=== PATIENT | female | born 2000 | race Caucasian/White ===

== ENCOUNTER 2023-12-19 06:00 | Inpatient (IN) | payer OTHER ==
[2023-12-19] MEDS ORDERED: METHYLERGONOVINE 0.2 MG/ML 1 ML AMP IM PRN (06:50)
[2023-12-19] MEDS ORDERED: miSOPROStoL 200 MCG TAB PO PRN (06:50)
[2023-12-19] MEDS ORDERED: TRANEXAMIC 1,000 MG/100ML-NACL 1,000 MG in EMPTY BAG 1 BAG IV PRN (06:50)
[2023-12-19] MEDS ORDERED: TERBUTALINE 1 MG/ML VIAL SQ PRN (06:50)
[2023-12-19] MEDS ORDERED: OXYTOCIN 10 UNIT/ML 1 ML VIAL IM PRN (06:50)
[2023-12-19] MEDS ORDERED: miSOPROStoL 200 MCG TAB RECTAL PRN (06:50)
[2023-12-19] MEDS ORDERED: CARBOPROST TROMETHAMINE 250 MCG/ML 1 ML AMP IM PRN (06:50)
[2023-12-19] MEDS: LACTATED RINGERS 1,000 ML IV SCH (07:22)
[2023-12-19] MEDS: OXYTOCIN 30 UNITS/500 ML NS 30 UNIT in SALINE 1 500ML.BAG IV SCH ×2 (07:24→12:02)
[2023-12-19 07:43] LABS: Basophils % (A) 0 %; Eosinophils % (A) 0 %; HCT 29.8 % (34.0-46.0); HGB 9.6 gm/dL (11.4-16.0); Hypochromasia Moderate; Lymphocytes # (A) 2.9 k/uL (1.0-4.8); Lymphocytes % (A) 30 %; MCH 24.8 pg (25.0-35.0); MCHC 32.1 g/dL (31.0-37.0); MCV 77.4 fL (80.0-100.0); Mean Platelet Volume 9.3; Monocytes # (A) 0.6 k/uL (0-1.0); Monocytes % (A) 6 %; Neutrophils # (A) 5.8 k/uL (1.3-7.7); Neutrophils % (A) 61 %; Platelet Count 224 k/uL (150-450); RBC 3.85 m/uL (3.80-5.40); RDW 14.1 % (11.5-15.5); WBC 9.5 k/uL (3.8-10.6)
[2023-12-19] MEDS: LIDOCAINE 0.5% (PF) 5 MG/ML (50 ML SDV) SQ PRN (11:25)
[2023-12-19] MEDS ORDERED: diphenhydrAMINE 50 MG/ML 1 ML VIAL IVP PRN ×2 (11:37)
[2023-12-19] MEDS ORDERED: SIMETHICONE 80 MG CHEWABLE PO PRN (11:37)
[2023-12-19] MEDS ORDERED: ZOLPIDEM 5 MG TAB PO PRN (11:37)
[2023-12-19] MEDS ORDERED: LANOLIN CREAM 1 GM TUBE TOPICAL PRN (11:37)
[2023-12-19] MEDS ORDERED: diphenhydrAMINE 25 MG CAP PO PRN (11:37)
[2023-12-19] MEDS ORDERED: HYDROCORTISONE 2.5% RECTAL CREAM 30 GM TUBE RECTAL PRN (11:37)
[2023-12-19] MEDS ORDERED: diphenhydrAMINE 50 MG CAP PO PRN (11:37)
[2023-12-19] MEDS: BENZOCAINE/MENTHOL SPRAY 1 GM/SPRAY AEROSOL TOPICAL PRN (11:40)
[2023-12-19] MEDS: IBUPROFEN 800 MG TAB PO SCH (12:04)
[2023-12-19] MEDS: ACETAMINOPHEN TAB 500 MG TAB PO SCH (20:11)
[2023-12-19] MEDS: SENNOSIDES-DOCUSATE SODIUM 1 EACH TAB PO SCH (21:57)
[2023-12-20 08:05] LABS: Basophils % (A) 0 %; Eosinophils % (A) 0 %; HCT 24.2 % (34.0-46.0); Hypochromasia Slight; Lymphocytes # (A) 3.5 k/uL (1.0-4.8); Lymphocytes % (A) 26 %; MCH 25.4 pg (25.0-35.0); MCHC 33.1 g/dL (31.0-37.0); MCV 76.6 fL (80.0-100.0); Mean Platelet Volume 9.8; Monocytes # (A) 0.6 k/uL (0-1.0); Monocytes % (A) 5 %; Neutrophils # (A) 8.9 k/uL (1.3-7.7); Neutrophils % (A) 67 %; Platelet Count 198 k/uL (150-450); Poikilocytosis Slight; RBC 3.15 m/uL (3.80-5.40); RDW 14.4 % (11.5-15.5); WBC 13.3 k/uL (3.8-10.6)
--- NOTE | 2023-12-20 11:56 | P.HPOB ---
History of Present Illness H&P Date: 12/19/23 Chief Complaint: induction of labor 23-year-old G 2 P0 presented at 37 weeks and 5 days for induction of labor with monochorionic dichorionic twins gestation. Her cervix is 5 cm dilated, 80% effaced, and -1 station. She is antonio irregularly. heart tones are both category 1. Review of Systems All systems: negative Constitutional: Denies chills, Denies fever Eyes: denies blurred vision, denies pain Ears, nose, mouth and throat: Denies headache, Denies sore throat Cardiovascular: Denies chest pain, Denies shortness of breath Respiratory: Denies cough Gastrointestinal: Denies abdominal pain, Denies diarrhea, Denies nausea, Denies vomiting Genitourinary: Denies dysuria, Denies hematuria Musculoskeletal: Denies myalgias Integumentary: Denies pruritus, Denies rash Neurological: Denies numbness, Denies weakness Psychiatric: Denies anxiety, Denies depression Endocrine: Denies fatigue, Denies weight change Past Medical History Past Medical History: No Reported History History of Any Multi-Drug Resistant Organisms: None Reported Additional Past Surgical History / Comment(s): left wrist surgery 2021 Past Anesthesia/Blood Transfusion Reactions: No Reported Reaction Past Psychological History: No Psychological Hx Reported Smoking Status: Never smoker Past Alcohol Use History: None Reported Past Drug Use History: None Reported - Past Family History Mother Family Medical History: No Reported History Father Family Medical History: No Reported History Medications and Allergies Home Medications Medication Instructions Recorded Confirmed Type Doxylamine Succinate [Unisom] 25 mg PO DAILY 12/19/23 12/19/23 History Vit No.179/Iron/Folic 1 each PO DAILY 12/19/23 12/19/23 History [ Tablet] Allergies Allergy/AdvReac Type Severity Reaction Status Date / Time No Known Allergies Allergy Verified 12/19/23 06:49 Exam Osteopathic Statement: *. No significant issues noted on an osteopathic structural exam other than those noted in the History and Physical/Consult. Vital Signs Temp Pulse Resp BP Pulse Ox 12/20/23 10:27 98.2 F 82 16 110/56 12/20/23 00:00 98 F 77 16 107/73 99 12/19/23 20:00 93 16 104/71 99 12/19/23 16:00 98.3 F 98 18 101/65 98 12/19/23 13:35 74 16 114/70 12/19/23 13:20 94 16 111/72 12/19/23 13:05 88 16 104/59 12/19/23 12:50 81 18 122/47 12/19/23 12:35 75 18 118/79 100 12/19/23 12:20 71 16 112/73 100 12/19/23 12:05 89 16 112/73 100 Intake and Output 12/19/23 12/20/23 12/20/23 22:59 06:59 14:59 Intake Total 540 Balance 540 Intake: Oral 540 Other: # Voids 1 2 1 Heart: Regular rate and rhythm Lungs: Clear to auscultation bilaterally Abdomen: Soft, nontender Extremities: Negative Homans sign Results Result Diagrams: 12/20/23 07:15 Abnormal Lab Results - Last 24 Hours (Table) 12/20/23 Range/Units 07:15 WBC 13.3 H (3.8-10.6) k/uL RBC 3.15 L (3.80-5.40) m/uL Hgb 8.0 L D (11.4-16.0) gm/dL Hct 24.2 L (34.0-46.0) % MCV 76.6 L (80.0-100.0) fL Neutrophils # 8.9 H (1.3-7.7) k/uL Assessment and Plan (1) Monochorionic diamniotic twin gestation Current Visit: Yes Status: Acute Code(s): O30.039 - TWIN , MONOCHORIONIC/DIAMNIOTIC, UNSP TRIMESTER SNOMED Code(s): 63496425 (2) Encounter for induction of labor Current Visit: Yes Status: Acute Code(s): Z34.90 - ENCNTR FOR SUPRVSN OF NORMAL , UNSP, UNSP TRIMESTER SNOMED Code(s): 988205182 Plan: 1. Induction of labor with amniotomy and Pitocin 2. Anticipate normal vaginal delivery
--- NOTE | 2023-12-20 11:59 | P.PROBDLV ---
Vaginal Delivery Note - . Vaginal Delivery Note: 23-year-old G 2 P0 presented at 37 weeks and 5 days for induction of labor with monochorionic dichorionic twins gestation. Her cervix is 5 cm dilated, 80% effaced, and -1 station. She is antonio irregularly. heart tones are both category 1. Amniotomy was performed at 8:25 AM clear fluid noted. Pitocin augmentation was started. She labored well and was quickly complete at 10:50 AM. She pushed, and delivered a viable female over intact perineum at 11:11 AM. Head delivered OA, anterior shoulder delivered gentle downward guidance by posterior shoulder and rest of body. Nose and mouth bulb suctioned, infant handed to cut, infant placed mother's abdomen. Apgars 9, 9, weight 4 lbs. 12 oz. Amniotomy performed on baby B at 11:12 AM and clear fluid noted. The head was noted to be coming down well and the heart tones remained category 1. She pushed, delivered a viable female infant over intact perineum at 11:17 AM. Head delivered OA, anterior shoulder delivered gentle downward guidance followed by posterior shoulder and rest of body. Nose and mouth bulb suctioned, And cut, placed mother's abdomen. Apgars 9, 9, weight 4 lbs. 12 oz. The single placenta with both cords was delivered intact with both three-vessel cords at 11:20 AM. Vagina, cervix, perineum inspected. Right labial laceration was repaired with 3-0 Vicryl. Estimated blood loss 250 mL. Mother and both babies in stable condition.
--- NOTE | 2023-12-20 12:00 | P.DS ---
Providers Date of admission: 12/19/23 06:27 Expected date of discharge: 12/20/23 Attending physician: Mariana Anderson Primary care physician: Stated None - Discharge Diagnosis(es) (1) Monochorionic diamniotic twin gestation Current Visit: Yes Status: Resolved (2) Encounter for induction of labor Current Visit: Yes Status: Resolved (3) Status post normal vaginal delivery Current Visit: Yes Status: Acute Hospital Course: She presented for induction of labor of twins. She underwent this induction and had a normal vaginal delivery without complication. course was uneventful. She denies nausea, vomiting, chest pain, shortness breath or calf pain. Patient will be discharged home day #1 in stable condition to follow-up with me in 6 weeks. Plan - Discharge Summary New Discharge Prescriptions: No Action Doxylamine Succinate [Unisom] 25 mg PO DAILY Vit No.179/Iron/Folic [ Tablet] 1 each PO DAILY Discharge Medication List Doxylamine Succinate [Unisom] 25 mg PO DAILY 12/19/23 [History] Vit No.179/Iron/Folic [ Tablet] 1 each PO DAILY 12/19/23 [History] Follow up Appointment(s)/Referral(s): Mariana Anderson DO [Doctor of Osteopathic Medicine] - 6 Weeks (01/30/24 10:30) Discharge Disposition: HOME SELF-CARE
[2023-12-20 23:30] VITALS: RESP 16
[2023-12-21 09:27] VITALS: BP 108/76; PULSE 87; TEMP 98
== END 2023-12-21 11:55 | disposition home or self-care (01) | DRG 560 ==
LOC: 4FBP 06:27
PROVIDERS: ADMIT Obstetrics & Gynecology; ATTEND Obstetrics & Gynecology
PROC: 10E0XZZ Delivery of Products of Conception, External Approach (ICD-10-PCS; principal; 2023-12-19)
PROC: 0UQMXZZ Repair Vulva, External Approach (ICD-10-PCS; 2023-12-19)
PROC: 3E033VJ Introduction of Other Hormone into Peripheral Vein, Percutaneous Approach (ICD-10-PCS; 2023-12-19)
PROC: 10907ZC Drainage of Amniotic Fluid, Therapeutic from Products of Conception, Via Natural or Artificial Opening (ICD-10-PCS; 2023-12-19)
DX: O30.033 Twin pregnancy, monochorionic/diamniotic, third trimester (principal); Z3A.37 37 weeks gestation of pregnancy; Z37.2 Twins, both liveborn; O70.0 First degree perineal laceration during delivery
CPT/HCPCS: 85025; 86850; 86900; 86901